=== PATIENT | male | born 1955 | race Caucasian/White ===

== ENCOUNTER → 2016-11-21 | Outpatient (CLI) | payer OTHER ==
[~2016-11-21] MED LIST: ADULT LOW DOSE81 MG PO; BYSTOLIC 5 MG5 M1 PO; FOLIC ACID1 MG PO; LISINOPRIL10 MG PO; PROZAC40 MG PO; SIMVASTATIN40 MG PO; VITAMIN D-32000 UNIT PO
[2016-11-21 12:30] VITALS: BP 141/70
[2016-11-21 12:46] LABS: HEMATOCRIT 43.5 % (42.0-52.0); HEMOGLOBIN 14.7 gm/dL (14.0-18.0)
== END ==
LOC: OPONC 07:07
PROVIDERS: Family Medicine
DX: E83.119 Hemochromatosis, unspecified (principal)

== ENCOUNTER → 2017-01-30 | Outpatient (CLI) | payer OTHER ==
[~2017-01-30] MED LIST changes: +WELLBUTRIN SR150 MG PO; +ZOCOR20 MG PO
[2017-01-30 12:09] VITALS: BP 109/73
[2017-01-30 12:28] LABS: HEMATOCRIT 45.1 % (42.0-52.0); HEMOGLOBIN 15.3 gm/dL (14.0-18.0)
[2017-01-30 13:00] VITALS: BP 138/77
== END ==
LOC: OPONC 02:33
PROVIDERS: Family Medicine
DX: E83.119 Hemochromatosis, unspecified (principal)
CPT/HCPCS: 95100

== ENCOUNTER → 2017-03-27 | Outpatient (CLI) | payer OTHER ==
[2017-03-27 12:32] LABS: HEMATOCRIT 43.1 % (42.0-52.0); HEMOGLOBIN 14.8 gm/dL (14.0-18.0)
== END ==
LOC: OPONC 08:43
PROVIDERS: Family Medicine
DX: E83.119 Hemochromatosis, unspecified (principal)

== ENCOUNTER → 2017-05-22 | Outpatient (CLI) | payer OTHER ==
[2017-05-22 12:07] VITALS: BP 149/68
[2017-05-22 12:21] LABS: HEMATOCRIT 44.7 % (42.0-52.0)
== END ==
LOC: OPONC 00:16
PROVIDERS: Family Medicine
DX: E83.119 Hemochromatosis, unspecified (principal)

== ENCOUNTER → 2017-07-24 | Outpatient (CLI) | payer OTHER ==
[~2017-07-24] MED LIST changes: +FLOMAX0.4 MG PO; +PRINIVIL10 MG PO
[2017-07-24 12:40] VITALS: BP 122/59
[2017-07-24 12:45] LABS: HEMATOCRIT 44.1 % (42.0-52.0); HEMOGLOBIN 15.4 gm/dL (14.0-18.0)
[2017-07-24 13:10] VITALS: BP 145/79
== END ==
LOC: OPONC 01:24
PROVIDERS: Family Medicine
DX: E83.119 Hemochromatosis, unspecified (principal)
CPT/HCPCS: 95100

== ENCOUNTER → 2017-09-18 | Outpatient (CLI) | payer OTHER ==
[2017-09-18 12:16] LABS: HEMATOCRIT 42.8 % (42.0-52.0); HEMOGLOBIN 14.8 gm/dL (14.0-18.0)
== END ==
LOC: OPONC 01:40
PROVIDERS: Family Medicine
DX: E83.119 Hemochromatosis, unspecified (principal)

== ENCOUNTER → 2018-01-29 | Outpatient (CLI) | payer OTHER ==
[~2018-01-29] MED LIST changes: -FLOMAX0.4 MG PO; -PRINIVIL10 MG PO
[2018-01-29 12:00] VITALS: BP 130/76
[2018-01-29 12:24] LABS: HEMATOCRIT 39.5 % (42.0-52.0); HEMOGLOBIN 13.6 gm/dL (14.0-18.0)
== END ==
LOC: OPONC 01-08 08:15
PROVIDERS: Family Medicine
DX: E83.119 Hemochromatosis, unspecified (principal)

== ENCOUNTER → 2018-05-21 | Outpatient (CLI) | payer OTHER ==
[~2018-05-21] MED LIST changes: +FLOMAX0.4 MG PO; +PRINIVIL10 MG PO
[2018-05-21 12:24] LABS: HEMATOCRIT 41.9 % (42.0-52.0); HEMOGLOBIN 14.4 gm/dL (14.0-18.0)
== END ==
LOC: OPONC 00:53
PROVIDERS: Family Medicine
DX: E83.119 Hemochromatosis, unspecified (principal)

== ENCOUNTER → 2018-07-30 | Outpatient (CLI) | payer BC, OTHER ==
[~2018-07-30] MED LIST changes: +COZAAR 50 MG TA50 MG PO
[2018-07-30 12:18] LABS: HEMATOCRIT 45.8 % (42.0-52.0); HEMOGLOBIN 15.9 gm/dL (14.0-18.0)
[2018-07-30 12:53] VITALS: BP 114/66
[2018-07-30 13:10] VITALS: BP 126/69
--- NOTE | 2018-07-30 13:25 | NUR ---
HERE FOR Q8W THERAPEUTIC PHLEBOTOMY FOR HEMACHROMATOSIS. LABS CHECKED PRIOR, HGB 15.9, HCT 45.8 SO PROCEEDED WITH PHLEBOTOMY. ONE FULL UNIT OBTAINED WITHOUT DIFFICULTY, PT TOLERATED WELL. PT DISMISSED IN STABLE CONDITION. SCHEDULED TO RETURN IN 8 WEEKS.
== END ==
LOC: OPONC 07-23 13:24
PROVIDERS: Family Medicine
DX: E83.119 Hemochromatosis, unspecified (principal)
CPT/HCPCS: 95100